=== PATIENT | female | born 1990 | race Hispanic/Latino ===

== ENCOUNTER 2021-07-19 21:18 | Emergency (ER) | payer OTHER, SELFPAY ==
[2021-07-19] MEDS ORDERED: Ondansetron ODT 4 MG TAB ONE (23:02)
== END 2021-07-19 23:03 | disposition home or self-care (01) ==
LOC: CSHERS 21:18
DX: R51.9 Headache, unspecified (principal); R05.9 Cough, unspecified; R11.0 Nausea; D50.9 Iron deficiency anemia, unspecified; F17.290 Nicotine dependence, other tobacco product, uncomplicated
CPT/HCPCS: 99283; Q0162

== ENCOUNTER 2022-12-01 21:55 | Emergency (ER) | payer BC ==
[2022-12-01 22:26] LABS: Bilirubin Neg (Negative); Blood, Urine 50 (Negative); Clarity Slightly Cloudy (Clear); Glucose, Urine (Dipstick) Normal (Negative); Ketone, Urine Negative (Negative); Leukocyte 500 (Negative); Nitrite Negative (Negative); Protein, Urine (Dipstick) 15 mg/dl (Neg-Trace)
[2022-12-01 22:36] LABS: Pregnancy Test - Urine (BHCG) Negative (Negative); Pregu Control Background? CLEAR/WHITE (CLR/WHITE); Pregu Control Bar Appear? YES (CONTROL BAR)
[2022-12-01 22:46] LABS: Bacteria/HPF 1+ HPF (None Seen); CAUTI Indications for Culture Dysuria,urgency,freq; Mucous/LPF 1+ LPF (<2+); RBC/HPF 0-3 HPF (0-3); Transitional Epithelial 0-3 HPF (None Seen); WBC/HPF 21-50 HPF (0-3)
[2022-12-01 22:49] LABS: Urine Culture Reflex Yes Yes
[2022-12-01] MEDS ORDERED: Ketorolac Tromethamine 30 MG/ML VIAL ONE (22:59)
[2022-12-01 23:35] LABS: #Eosinphils 0.1 10x3/uL (0.0-0.5); #Monocytes 0.6 10x3/uL (0.0-1.1); #Neutrophils 5.6 10x3/uL (1.5-8.4); %Basophils 0.5 % (0.0-2.0); %Eosinophils 1.6 % (0.0-6.0); %Lymphocytes 26.2 % (18.0-47.0); %Monocytes 6.6 % (0.0-10.0); %Neutrophils 64.5 % (40.0-75.0); Hematocrit 37.3 % (34.9-44.5); Hemoglobin 12.5 g/dL (12.0-15.5); Mean Corpuscular HGB CONC 33.5 g/dL (32.0-36.0); Mean Corpuscular Hemoglobin 28.6 pg (27.0-33.0); Mean Corpuscular Volume 85.4 fl (81.6-98.3); Platelet Count 320 10x3/uL (150-450); RBC Distribution Width 12.8 % (11.5-14.5); Red Blood Cell (RBC) Count 4.37 10x6/uL (3.90-5.03); White Blood Cell (WBC) Count 8.6 10x3/uL (3.5-10.5)
[2022-12-01 23:47] LABS: ALT (SGPT) 9 U/L (8-55); AST (SGOT) 13 U/L (5-34); Albumin 3.6 g/dL (3.5-5.0); Alkaline Phosphatase 58 U/L (40-110); Anion Gap 12 mmol/L (10-20); BUN (Urea Nitrogen) 13 mg/dL (7.0-18.7); Bilirubin, Total Less than 0.2 mg/dL (0.2-1.2); Calc. Creatinine Clearance 0 mL/min (70-130); Carbon Dioxide 26 mmol/L (22-29); Chloride 107 mmol/L (98-107); Estimated GFR 96; Globulin 1.7 g/dL (2.4-3.5); Glucose 98 mg/dL (70-105); Protein, Total 5.3 g/dL (6.0-8.3); Sodium 141 mmol/L (136-145)
== END 2022-12-02 00:14 | disposition home or self-care (01) ==
LOC: CSHERS 21:55
DX: N39.0 Urinary tract infection, site not specified (principal); M54.50 Low back pain, unspecified; Z87.891 Personal history of nicotine dependence
CPT/HCPCS: 36415; 74176; 80053; 81001; 81025; 85025; 87086; 96372; J1885

== ENCOUNTER 2024-01-30 18:26 | Emergency (ER) | payer SELFPAY ==
[2024-01-30] MEDS ORDERED: Ondansetron ODT 4 MG TAB ONE (19:23)
[2024-01-30] MEDS ORDERED: Ketorolac Tromethamine 30 MG (1 mL) VIAL ONE (19:23)
[2024-01-30] MEDS ORDERED: Bicillin LA 1.2 MILLION UNITS/2 ML SYRINGE IM SCH (20:00)
== END 2024-01-30 20:36 | disposition home or self-care (01) ==
LOC: CSHERS 18:26
DX: J02.0 Streptococcal pharyngitis (principal); Z87.891 Personal history of nicotine dependence
CPT/HCPCS: 96372; J0561; J1885; Q0162

== ENCOUNTER 2024-03-12 17:28 | Emergency (ER) | payer SELFPAY ==
[2024-03-12] MEDS ORDERED: Famotidine/PF 20 mg/2ml Vial ONE (18:03)
[2024-03-12] MEDS ORDERED: Ondansetron PF 4 MG/2 ML Vial ONE (18:03)
[2024-03-12 18:10] LABS: #Basophils Less than 0.03 10x3/uL (0.0-0.2); #Eosinophils 0.06 10x3/uL (0.0-0.5); #Monocytes 0.49 10x3/uL (0.0-1.1); %Basophils 0.3 % (0.0-2.0); %Lymphocytes 6.2 % (18.0-47.0); %Monocytes 8.2 % (0.0-10.0); %Neutrophils 83.8 % (40.0-75.0); Hematocrit 36.7 % (34.9-44.5); Hemoglobin 12.2 g/dL (12.0-15.5); Mean Corpuscular HGB CONC 33.2 g/dL (32.0-36.0); Mean Corpuscular Hemoglobin 27.8 pg (27.0-33.0); Mean Corpuscular Volume 83.6 fL (81.6-98.3); Mean Platelet Volume 9.2 fL (7.4-10.4); Platelet Count 272 10x3/uL (150-450); RBC Distribution Width 12.3 % (11.5-14.5); Red Blood Cell (RBC) Count 4.39 10x6/uL (3.90-5.03); White Blood Cell (WBC) Count 5.97 10x3/uL (3.5-10.5)
[2024-03-12 18:19] LABS: BHCG - Serum Negative (NEGATIVE); Pregs Control Background? CLEAR/WHITE (CLR/WHITE); Pregs Control Bar Appear? YES (CONTROL BAR)
[2024-03-12 18:25] LABS: ALT (SGPT) 17 U/L (Less than 34); AST (SGOT) 18 U/L (11-34); Albumin 4.4 g/dL (3.1-4.5); Alkaline Phosphatase 75 U/L (40-110); Anion Gap 12 mmol/L (10-20); BUN (Urea Nitrogen) 10 mg/dL (7.0-18.7); Bilirubin, Total 0.3 mg/dL (0.3-1.2); Calc. Creatinine Clearance 0 mL/min (70-130); Calcium 8.4 mg/dL (7.8-10.44); Carbon Dioxide 24 mmol/L (22-29); Chloride 104 mmol/L (98-107); Estimated GFR 106; Globulin 2.8 g/dL (2.4-3.5); Glucose 95 mg/dL (70-105); Lipase 25 U/L (8-78); Potassium 3.5 mmol/L (3.5-5.1); Protein, Total 7.2 g/dL (6.0-8.3); Sodium 136 mmol/L (136-145)
[2024-03-12] MEDS ORDERED: Ketorolac Tromethamine 30 MG (1 mL) VIAL ONE (18:43)
== END 2024-03-12 18:20 | disposition home or self-care (01) ==
LOC: CSHERS 17:28
DX: R11.2 Nausea with vomiting, unspecified (principal); Z87.891 Personal history of nicotine dependence; R05.9 Cough, unspecified
CPT/HCPCS: 36415; 80053; 83690; 84703; 85025; 87428; 96361; 96374; 96375; J1885; J2405; J3490

== ENCOUNTER 2024-03-15 12:10 | Emergency (ER) | payer SELFPAY ==
[2024-03-15] MEDS ORDERED: Ondansetron PF 4 MG/2 ML Vial ONE (13:08)
[2024-03-15] MEDS ORDERED: Ketorolac Tromethamine 30 MG (1 mL) VIAL ONE (13:08)
[2024-03-15 13:23] LABS: #Basophils Less than 0.03 10x3/uL (0.0-0.2); #Eosinophils 0.16 10x3/uL (0.0-0.5); #Monocytes 0.52 10x3/uL (0.0-1.1); #Neutrophils 2.15 10x3/uL (1.5-8.4); %Basophils 0.3 % (0.0-2.0); %Eosinophils 4.3 % (0.0-6.0); %Lymphocytes 23.6 % (18.0-47.0); %Monocytes 13.9 % (0.0-10.0); %Neutrophils 57.6 % (40.0-75.0); Hematocrit 38.4 % (34.9-44.5); Mean Corpuscular HGB CONC 33.9 g/dL (32.0-36.0); Mean Corpuscular Hemoglobin 28.3 pg (27.0-33.0); Mean Corpuscular Volume 83.5 fL (81.6-98.3); Mean Platelet Volume 9.1 fL (7.4-10.4); Platelet Count 293 10x3/uL (150-450); RBC Distribution Width 12.1 % (11.5-14.5); White Blood Cell (WBC) Count 3.73 10x3/uL (3.5-10.5)
[2024-03-15 13:55] LABS: ALT (SGPT) 25 U/L (Less than 34); AST (SGOT) 27 U/L (11-34); Albumin 4.5 g/dL (3.1-4.5); Alkaline Phosphatase 77 U/L (40-110); Anion Gap 13 mmol/L (10-20); BUN (Urea Nitrogen) 9 mg/dL (7.0-18.7); Bilirubin, Total 0.4 mg/dL (0.3-1.2); Calc. Creatinine Clearance 0 mL/min (70-130); Calcium 8.8 mg/dL (7.8-10.44); Carbon Dioxide 24 mmol/L (22-29); Chloride 103 mmol/L (98-107); Estimated GFR 91; Globulin 3.4 g/dL (2.4-3.5); Glucose 100 mg/dL (70-105); Lipase 18 U/L (8-78); Potassium 3.4 mmol/L (3.5-5.1); Protein, Total 7.9 g/dL (6.0-8.3); Sodium 137 mmol/L (136-145)
[2024-03-15] MEDS ORDERED: Metoclopramide HCl 10 MG (2 mL) VIAL ONE (14:29)
[2024-03-15] MEDS ORDERED: predniSONE 20 MG TAB ONE (15:47)
[2024-03-15] MEDS ORDERED: Potassium Chloride 20 MEQ TAB ONE (15:47)
== END 2024-03-15 16:11 | disposition home or self-care (01) ==
LOC: CSHERS 12:10
DX: B34.9 Viral infection, unspecified (principal); F17.210 Nicotine dependence, cigarettes, uncomplicated
CPT/HCPCS: 36415; 71045; 80053; 83690; 85025; 87428; 96361; 96365; 96375; J1885; J2405; J2765; J7512